=== PATIENT | female | born 2000 | race Caucasian/White ===

== ENCOUNTER 2018-01-14 22:06 | Emergency (ER) | payer OTHER ==
[2018-01-14] MEDS: ONDANSETRON (ODT) 4 MG TAB ODT (23:13)
[2018-01-14 23:17] LABS: URINE BLOOD (Dip) POC Negative (NEGATIVE); URINE GLUCOSE (Dip) POC Negative (NEGATIVE); URINE KETONES (Dip) POC Negative (NEGATIVE); URINE LEUKOCYTE EST (Dip) POC Negative (NEGATIVE); URINE NITRITE (Dip) POC Negative (NEGATIVE); URINE TOTAL PROTEIN POC Negative (NEGATIVE)
[2018-01-14] MEDS: KETOROLAC 30 MG INJ IM ×2 (23:18→23:28)
== END 2018-01-14 23:39 | disposition home or self-care (01) ==
LOC: FTE 22:06
DX: R19.7 Diarrhea, unspecified (principal); J45.909 Unspecified asthma, uncomplicated; R11.0 Nausea; R10.2 Pelvic and perineal pain
CPT/HCPCS: 81003; 81025; 99283